=== PATIENT | female | born 1985 | race American Indian/Alaskan Native ===

== ENCOUNTER 2022-05-14 19:54 | Emergency (ER) | payer SELFPAY ==
[2022-05-14 21:52] VITALS: BP 126/91
[2022-05-14 23:18] LABS: Basophils # (Auto) 0.1 K/mm3 (0.0-0.1); Basophils % (Auto) 0.7 % (0.0-1.8); Eosinophils % (Auto) 0.1 % (0.0-4.3); Hematocrit 39.1 % (30.3-42.9); Hemoglobin 13.3 gm/dl (10.1-14.3); Lymphocytes # (Auto) 1.2 K/mm3 (1.2-5.4); Lymphocytes % (Auto) 12.3 % (13.4-35.0); Mean Corpuscular HGB Conc 34 % (30-34); Mean Corpuscular Volume 91 fl (79-97); Monocytes # (Auto) 0.7 K/mm3 (0.0-0.8); Platelet Count 254 K/mm3 (140-440); Red Blood Count 4.31 M/mm3 (3.65-5.03)
--- NOTE | 2022-05-15 10:33 | Electrocardiograph Report ---
[facility] Test Date: 2022-05-14 Test Time: 21:58:39 Pat Name: IGNACIO MARTIN Department: Room: Gender: F [employer] Dispatcher: TECH : 1985 Requested By: ED DOC Order Number: [id number] Reading MD: Rome Angulo Measurements Intervals [place] Rate: 87 P: 42 KS: 150 QRS: 48 QRSD: 79 T: 17 QT: 377 QTc: 455 Interpretive Statements Sinus rhythm Probable left atrial enlargement No previous ECG available for comparison Electronically Signed On 05-15-2022 10:33:13 EDT by Rome Angulo
== END 2022-05-15 02:08 | disposition left against medical advice (07) ==
LOC: EDBD → ED 19:54
DX: T43.211A Poisoning by selective serotonin and norepinephrine reuptake inhibitors, accidental (unintentional), initial encounter (principal); Z53.21 Procedure and treatment not carried out due to patient leaving prior to being seen by health care provider; Y92.89 Other specified places as the place of occurrence of the external cause
CPT/HCPCS: 36415; 85025; 93005